=== PATIENT | male | born 2000 | race African-American/Black ===

== ENCOUNTER 2020-09-05 08:19 | Emergency (ER) | payer OTHER ==
[~2020-09-05] VITALS: Ht 188 cm; Wt 70.3 kg
[~2020-09-05 08:19] MED LIST: ALEVE220 MG PO
== END 2020-09-05 10:05 | disposition home or self-care (01) ==
LOC: ED 08:19
DX: M79.81 Nontraumatic hematoma of soft tissue (principal)

== ENCOUNTER 2020-09-06 13:14 | Emergency (ER) | payer OTHER ==
[~2020-09-06] VITALS: Ht 185.4 cm; Wt 70.3 kg
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
== END 2020-09-06 17:03 | disposition home or self-care (01) ==
LOC: ED 13:14
DX: K05.10 Chronic gingivitis, plaque induced (principal)
CPT/HCPCS: 99283